=== PATIENT | female | born 1975 | race Caucasian/White ===

== ENCOUNTER 2023-03-21 11:29 | Emergency (ER) | payer OTHER ==
[~2023-03-21] VITALS: Ht 165.1 cm; Wt 59.9 kg
[~2023-03-21 11:29] MED LIST: FIORICET TABLET1 TAB PO
[2023-03-21] MEDS ORDERED: MEDROLPACK PO (14:57)
[2023-03-21] MEDS ORDERED: DIPHENHYDRAMINE25 MG PO (14:57)
== END 2023-03-21 15:19 | disposition home or self-care (01) ==
LOC: ER 11:29
DX: T78.3XXA Angioneurotic edema, initial encounter (principal)

== ENCOUNTER 2023-04-26 11:45 | Emergency (ER) | payer OTHER ==
[~2023-04-26] VITALS: Ht 165.1 cm; Wt 59.9 kg
[~2023-04-26 11:45] MED LIST changes: +DIPHENHYDRAMINE25 MG PO; +MEDROLPACK PO
== END 2023-04-26 14:37 | disposition home or self-care (01) ==
LOC: ER 11:45
DX: T78.40XA Allergy, unspecified, initial encounter (principal)

== ENCOUNTER 2023-09-25 19:31 | Emergency (ER) | payer OTHER ==
[~2023-09-25] VITALS: Ht 165.1 cm; Wt 61.7 kg
[2023-09-26 00:14] LABS: HEMATOCRIT 37.1 % (36.0-45.00); HEMOGLOBIN 12.8 g/dL (12.0-15.00); MEAN CORPUSCULAR HEMOGLOBIN 29.7 pg (27.00-32.0); MEAN CORPUSCULAR HGB CONC 34.5 g/dl (32.0-36.0); PLATELET COUNT 337 K/uL (150-450); RED BLOOD COUNT 4.31 M/uL (4.00-6.00); RED CELL DISTRIBUTION WIDTH 14.9 % (11.5-14.5)
== END 2023-09-26 01:49 | disposition home or self-care (01) ==
LOC: ER 19:32
PROVIDERS: General Practice
DX: R53.81 Other malaise (principal); J00 Acute nasopharyngitis [common cold]; Z20.822 Contact with and (suspected) exposure to COVID-19